=== PATIENT | male | born 2000 | race Caucasian/White ===

== ENCOUNTER 2024-09-14 20:45 | Emergency (ER) | payer OTHER, SELFPAY ==
[2024-09-14 20:51] VITALS: BP 133/103; PULSE 110; RESP 18; TEMP 36.2; O2SAT 99
[2024-09-14] MEDS: ONDANSETRON 4 MG/2 ML INJ IV (21:15)
[2024-09-14 21:16] LABS: Add Manual Diff / Slide Review NO; Basophils Absolute Auto 0 /uL (0-100); Basophils Percent Auto 0.1 % (0-2); Eosinophils Absolute Auto 0 /uL (0-450); Eosinophils Percent Auto 0.1 % (2-4); Hematocrit 50.2 % (41-53); Hemoglobin 16.8 g/dL (13.5-17.5); Lymphocytes Absolute Auto 1100 /uL (1100-4500); Lymphocytes Percent Auto 6.4 % (25-40); Mean Corpuscular HGB Conc 33.4 % (30-36); Mean Corpuscular Hemoglobin 27.5 PG (26-34); Mean Corpuscular Volume 82.2 fL (80-100); Monocytes Absolute Auto 700 /uL (0-900); Neutrophils Absolute Auto 15600 /uL (1500-7000); Neutrophils Percent Auto 89.4 % (50-75); Platelet Count 340 X10^3/uL (150-400); Red Blood Cell Count 6.11 X10^6/uL (4.5-5.9); White Blood Cell Count 17.4 X10^3/uL (4.5-11.0)
[2024-09-14 21:29] LABS: Alanine Aminotransferase 32 IU/L (<50); Albumin 5.4 g/dL (3.5-5.0); Albumin Globulin Ratio 1.7 (1.0-2.8); Alkaline Phosphatase 62 U/L (38-126); Aspartate Aminotransferase 44 IU/L (17-59); BUN Creatinine Ratio 17.5 (6-22); Blood Urea Nitrogen 20 mg/dL (9-20); Calcium 10.3 mg/dL (8.4-10.2); Carbon Dioxide 19 mmol/L (22-32); Chloride 101 mmol/L (98-107); Estimated Glomerular Filt Rate > 60 mL/min (>60); Globulin 3.2 g/dL (1.7-4.1); Glucose 173 mg/dL (70-100); HEMOLYSIS < 15 (0-50); Lipase 42 U/L (23-300); Potassium 3.6 mmol/L (3.4-5.1); Sodium 139 mmol/L (137-145); Total Protein 8.6 g/dL (6.3-8.2)
[2024-09-14] MEDS: SODIUM CHLORIDE 0.9% 1,000 ML 1000 ML IV (21:48)
[2024-09-14 21:50] VITALS: BP 116/55; PULSE 90; RESP 18; O2SAT 99
[2024-09-14 22:08] VITALS: BP 124/59; PULSE 70; O2SAT 97
[2024-09-14 22:09] VITALS: PULSE 63; O2SAT 96
[2024-09-14] MEDS: METOCLOPRAMIDE 10 MG/2 ML INJ IV (22:28)
[2024-09-14] MEDS: diphenhydrAMINE 50 MG/ML VIAL 25 MG IV (22:28)
[2024-09-14 22:44] LABS: Adenovirus F 40/41 Not Detected (Not Detect); Astrovirus Not Detected (Not Detect); Campylobacter Not Detected (Not Detect); Clostridium difficile toxin AB Not Detected (Not Detect); Cryptosporidium Not Detected (Not Detect); Cyclospora cayetanensis Not Detected (Not Detect); Entamoeba histolytica Not Detected (Not Detect); Enteroaggregative E.coli Not Detected (Not Detect); Enteropathogenic E.coli Not Detected (Not Detect); Enterotoxigenic E.coli It/st Not Detected (Not Detect); Giardia lamblia Not Detected (Not Detect); Norovirus GI/GII Detected (Not Detect); Plesiomonsa shigelloides Not Detected (Not Detect); Rotavirus A Not Detected (Not Detect); Salmonella Not Detected (Not Detect); Sapovirus Not Detected (Not Detect); Shiga-like toxin-prod E.coli Not Detected (Not Detect); Shigella/Enteroinvasive E.coli Not Detected (Not Detect); Vibrio Not Detected (Not Detect); Vibrio cholerae Not Detected (Not Detect); Yersinia enterocolitica Not Detected (Not Detect)
[2024-09-14 23:45] VITALS: BP 117/67; PULSE 100; O2SAT 100
[2024-09-14 23:46] VITALS: BP 117/67; PULSE 99; O2SAT 100
--- NOTE | 2024-09-14 23:53 | ED_ITS ---
HPI - Abdominal Pain General Chief Complaint: Abdominal Pain Stated Complaint: abd px Time Seen by Provider: 09/14/24 23:53 Source: patient Mode of arrival: Ambulatory History of Present Illness HPI narrative: 23-year-old male without any known significant past medical history presents to the emergency department from home for evaluation of abdominal pain nausea vomiting diarrhea. He also states that this started at around 6:30 p.m. today after eating lunch. No recent known sick contacts. No recent travel. He denies any symptoms such as headache visual disturbances chest pain shortness of breath fever chills other GI/ symptoms time. He states that he also noticed a little bit of red in his last bowel movement and is worried given this. Related Data Previous Rx's Medication Instructions Recorded azithromycin 250 mg tablet See Rx Instructions PO .COMPLEX #6 01/06/19 tabs metoclopramide HCl 10 mg tablet 10 mg PO Q6H PRN nausea and 09/15/24 (Reglan) vomiting 1 week #14 tabs Allergies Allergy/AdvReac Type Severity Reaction Status Date / Time No Known Drug Allergies Allergy Verified 01/06/19 20:00 Review of Systems Review of Systems Narrative: General: Denies fever, chills, weight loss HEENT: Denies headache, eye drainage, eye irritation, head trauma, sore throat, voice change Cardiovascular: Denies any chest pain, palpitations, tachycardia Respiratory: Denies any shortness of breath, cough, wheeze, stridor GI/: Positive abdominal pain, nausea, vomiting, diarrhea, bright red blood per rectum, denies melanotic stools, urinary frequency, urinary retention, dysuria, hematuria MSK: Denies any joint pain, muscle pains, swelling Skin: Denies any rashes, lesions, discoloration Neuro: Denies any headache, lightheadedness, dizziness, fainting, weakness Psych: Denies SI/HI Patient History Social History Smoking Status: Never smoker Smoking Status: Never smoker tobacco type: vaping Exam Narrative Exam Narrative: General: Cooperative, comfortable, well-developed, not in acute distress HEENT: Normocephalic, atraumatic, PERRLA, normal sclera, eyelids normal, Neck: Active full range of motion, atraumatic Chest: Normal to inspection, negative crepitus, no overlying erythema ecchymosis Respiratory: Normal respiratory effort, not in acute respiratory distress, clear to auscultation bilaterally negative cough, wheeze, tachypnea, rhonchi, rales Cardiology: Regular rate rhythm negative gallop, murmur, rubs GI/: Normal to inspection, soft, nonrigid, no tenderness to palpation, exam deferred MSK: Full range of active range of motion of all 4 extremities, atraumatic Skin: No rashes lesions noted Neuro: Alert awake oriented x3, moves all 4 extremities spontaneously, cranial nerves intact, able to answer all questions appropriately follows commands appropriately Psych: Cooperative, negative suicidal or homicidal ideations Initial Vital Signs Initial Vital Signs: Vital Signs Temperature 97.2 F L 09/14/24 20:51 Pulse Rate 110 H 09/14/24 20:51 Respiratory Rate 18 09/14/24 20:51 Blood Pressure 133/103 H 09/14/24 20:51 Pulse Oximetry 99 09/14/24 20:51 Oxygen Delivery Method Room Air 09/14/24 20:51 Course Orders Ordered: Discontinued Medications Diphenhydramine HCl (Diphenhydramine 50 Mg/Ml Vial) 25 mg IV NOW ONE Stop: 09/14/24 22:19 Last Admin: 09/14/24 22:28 Dose: 25 mg Documented By: CHANI Sodium Chloride (Normal Saline 0.9%) 1,000 mls @ 1,000 mls/hr IV BOLUS ONE Stop: 09/14/24 22:38 Last Infusion: 09/14/24 22:35 Dose: Infused Documented By: Admin: 09/14/24 21:48 Dose: 1,000 mls/hr Documented By: SKYLER Metoclopramide HCl (Metoclopramide 10 Mg/2 Ml Inj) 10 mg IV NOW ONE Stop: 09/14/24 22:19 Last Admin: 09/14/24 22:28 Dose: 10 mg Documented By: CHANI Ondansetron HCl (Ondansetron 4 Mg/2 Ml Inj) 4 mg IV NOW PRN PRN Reason: Nausea And Vomiting Last Admin: 09/14/24 21:15 Dose: 4 mg Documented By: SKYLER Ondansetron HCl (Ondansetron 4 Mg Odt) 4 mg PO NOW PRN PRN Reason: Nausea And Vomiting Ondansetron HCl (Ondansetron 4 Mg Odt Prepack) 1 bottle MISC DIRECTED ONE Stop: 09/15/24 00:05 Last Admin: 09/15/24 00:22 Dose: 1 bottle Documented By: CHANI Vital Signs Vital signs: Vital Signs - 8 hr 09/14/24 23:45 09/14/24 23:46 09/14/24 23:46 Pulse Rate 100 H 99 H Blood Pressure 117/67 117/67 Pulse Oximetry 100 100 09/15/24 00:00 09/15/24 00:00 Pulse Rate 90 Blood Pressure 134/65 Pulse Oximetry 98 MDM - Abdominal Pain Differential Diagnosis Differential diagnosis: Likely abdominal pain, gastroenteritis, pancreatitis and other (Norovirus, electrolyte abnormality, urinary tract infection) Lab Data 09/14/24 21:10 09/14/24 21:10 Labs: Lab Results 09/14/24 09/14/24 Range/Units 20:59 21:10 WBC 17.4 H (4.5-11.0) X10^3/uL RBC 6.11 H (4.5-5.9) X10^6/uL Hgb 16.8 (13.5-17.5) g/dL Hct 50.2 (41-53) % MCV 82.2 (80-100) fL MCH 27.5 (26-34) PG MCHC 33.4 (30-36) % RDW 13.0 (11.6-14.8) % Plt Count 340 (150-400) X10^3/uL Neut % (Auto) 89.4 H (50-75) % Lymph % (Auto) 6.4 L (25-40) % [place] % (Auto) 4.0 (3-14) % Eos % (Auto) 0.1 L (2-4) % Baso % (Auto) 0.1 (0-2) % Neut # (Auto) 80796 H (0978-1455) /uL Lymph # (Auto) 1100 (8912-7378) /uL [place] # (Auto) 700 (0-900) /uL Eos # (Auto) 0 (0-450) /uL Baso # (Auto) 0 (0-100) /uL Sodium 139 (137-145) mmol/L Potassium 3.6 (3.4-5.1) mmol/L Chloride 101 (98-107) mmol/L Carbon Dioxide 19 L (22-32) mmol/L BUN 20 (9-20) mg/dL Creatinine 1.14 (0.66-1.25) mg/dL Estimated GFR > 60 (>60) mL/min BUN/Creatinine Ratio 17.5 (6-22) Glucose 173 H (70-100) mg/dL Calcium 10.3 H (8.4-10.2) mg/dL Total Bilirubin 1.0 (0.2-1.3) mg/dL AST 44 (17-59) IU/L ALT 32 (<50) IU/L Alkaline Phosphatase 62 (38-126) U/L Total Protein 8.6 H (6.3-8.2) g/dL Albumin 5.4 H (3.5-5.0) g/dL Globulin 3.2 (1.7-4.1) g/dL Albumin/Globulin Ratio 1.7 (1.0-2.8) Lipase 42 (23-300) U/L Stl C. cayetanensis PCR Not detected (Not Detect) Stool Rotavirus (PCR) Not detected (Not Detect) Stool Adenovirus (PCR) Not detected (Not Detect) Stool Astrovirus (PCR) Not detected (Not Detect) Stool Cryptosporidium PCR Not detected (Not Detect) Stl E.coli Shiga Tox PCR Not detected (Not Detect) St Sh/Enteroin Ecoli PCR Not detected (Not Detect) Stl Enterotoxigenic E PCR Not detected (Not Detect) Stool EPEC (PCR) Not detected (Not Detect) Stl E. histolytica PCR Not detected (Not Detect) Stool Giardia Lamblia PCR Not detected (Not Detect) Stool Sapovirus (PCR) Not detected (Not Detect) Stl P. shigelloides PCR Not detected (Not Detect) St Y.enterocolitica PCR Not detected (Not Detect) Stool Vibrio (PCR) Not detected (Not Detect) Stl Vibrio cholerae PCR Not detected (Not Detect) Stl Enteroaggr Ecoli PCR Not detected (Not Detect) Stl Norovirus GI/GII PCR Detected (Not Detect) Campylobacter (PCR) Not detected (Not Detect) C. difficile Tox (PCR) Not detected (Not Detect) Salmonella (PCR) Not detected (Not Detect) MDM Narrative Medical decision making narrative: Patient is a 23-year-old male without any significant past medical history presenting to the emergency department for abdominal pain associated with nausea vomiting diarrhea. He states he is not having actual abdominal pain unless he is wearing his bowels or having an episode of vomiting. States it started around 6:30 p.m. yesterday. States it happened after eating lunch. No recent sick contacts no recent travel on exam abdomen is soft nontender non peritoneal nature, however initially patient was vomiting on exam. Patient did have leukocytosis of 17.4 most likely reactive given patient's history of presenting symptoms of nausea vomiting diarrhea in the setting of a positive norovirus test here in the emergency department. Patient's creatinine 1.14 BUN 20 GFR greater than 60. Patient was given symptomatic relief here with antinausea medication fluids patient was able to tolerate p.o. liquids here in the emergency department he will be sent home with symptomatic relief instructed to follow up with the primary care strict return precautions given he verbalized understanding of this and agrees to being discharged home with outpatient follow up Discharge Plan Departure Patient Disposition: Home Clinical Impression: Norovirus Instructions: DI for Norovirus Infection Activity Restrictions/Additional Instructions: Please follow up with his primary care doctor Please read the discharge instructions sheet carefully and bring all papers to all doctor follow-up visits, as it may contain information that your doctor may want to see. Disease processes change and evolve, if your symptoms worsen or if you develop any new symptoms that are concerning to you please return for evaluation. Your evaluation today does not show any evidence of any life- threatening/serious illnesses requiring admission to the hospital or surgery. Please follow-up with your doctor for re-evaluation in approximately 1 day. Seek immediate medical attention for any worrisome symptoms. *If you do not have a primary care provider please contact the [facility] Resource line at [phone]. They will ask some questions about your medical history and help get you set up with a doctor in the community. Prescriptions: New metoclopramide HCl [Reglan] 10 mg tablet 10 mg PO Q6H PRN (Reason: nausea and vomiting) 7 Days Qty: 14 0RF No Action azithromycin 250 mg tablet See Rx Instructions PO .COMPLEX Qty: 6 0RF Rx Instructions: take 500 mg today (day 1), then 250 mg for 4 days (days 2-5) PO Referrals: Miscellaneous,Doctor, MD [Primary Care Provider] - Stand Alone Forms: Patient Portal/API/Survey
[2024-09-15] VITALS: BP 134/65; PULSE 90; O2SAT 98
[2024-09-15] MEDS: ONDANSETRON 4 MG ODT PREPACK 1 BOTTLE MISC (00:22)
== END 2024-09-15 00:37 | disposition home or self-care (01) ==
PROVIDERS: Emergency Provider Student in an Organized Health Care Education/Training Program
DX: A08.11 Acute gastroenteropathy due to Norwalk agent (principal); R11.2 Nausea with vomiting, unspecified; R19.7 Diarrhea, unspecified
CPT/HCPCS: 36415; 80053; 83690; 85025; 87507; 96361; 96374; 96375; 99284; J1200; J2405; J2765